=== PATIENT | male | born 1965 | race African-American/Black ===

== ENCOUNTER 2017-01-29 11:14 | Inpatient (IN) ==
[2017-01-29] MEDS ORDERED: SODIUM CHLORIDE 0.9% 1,000 ML IV STA (12:44)
[2017-01-29] MEDS ORDERED: ONDANSETRON 4 MG/2 ML VIAL IV ONE (12:45)
[2017-01-29] MEDS ORDERED: ONDANSETRON 4 MG/2 ML VIAL ONE ×2 (12:46→18:28)
[2017-01-29 12:51] LABS: Basophils % 0.4 % (0.0-0.8); Eosinophils # 0.1 10*3/uL (0.0-0.87); Eosinophils % 1.5 % (0.00-10.9); Hematocrit 47.4 VOL% (42.0-52.0); Hemoglobin 15.1 GM/DL (14.0-18.0); Immature Granulocytes % 0.3 %; Immature Granulocytes Absolute 0.02 #; Lymphocytes # 0.5 10*3/uL (1.4-4.0); Lymphocytes % 7.3 % (21.2-54.2); Mean Corpuscular HGB Conc 31.9 GM/DL (32-36); Mean Corpuscular Hemoglobin 29 PG (27-34); Mean Corpuscular Volume 89.8 FL (87-102); Mean Platelet Volume 11.9 FL (9.6-12.0); Monocytes # 0.7 10*3/uL (0.11-0.8); Monocytes % 9.5 % (1.7-12.7); Neutrophils # 5.6 10*3/uL (1.4-7.4); Platelet Count 165 T/CUMM (130-400); Red Blood Count 5.28 MC/CUMM (3.8-5.5); Red Cell Distribution Width 12.5 % (9.3-17.3); White Blood Count 6.9 T/CUMM (4-12)
[2017-01-29 12:56] LABS: Apearance,Urine CLEAR (Clear); Bacteria,Urine Occasional /HPF (Few); Blood, Urine Small mg/dL (Negative); Glucose,Urine (UA) Negative (Negative); Ketones,Urine 20 mg/dL (Negative); Mucus,Urine Occasional /LPF (Occasional); Nitrite,Urine Negative (Negative); Protein,Urine 30 MG/DL; RBC,Urine <1 /HPF (0-4); Urine Color Amber (Yellow); WBC,Urine 1 /HPF (0-6)
[2017-01-29 12:57] LABS: Bilirubin,Urine Moderate mg/dL (Negative)
[2017-01-29 13:23] LABS: Albumin 3.6 G/DL (3.4-5.0); Bilirubin,Total 8.3 MG/DL (0.2-1.0); Potassium 3.9 MMOL/L (3.5-5.1); Total Protein 8.6 G/DL (6.4-8.3)
[2017-01-29] MEDS ORDERED: HYDROmorphone 2 MG/1 ML VIAL ONE (18:27)
[2017-01-29] MEDS: HYDROmorphone 2 MG/1 ML VIAL IV PRN ×2 (18:35→22:22)
[2017-01-29] MEDS: ONDANSETRON 4 MG/2 ML VIAL IV PRN ×2 (18:35→22:26)
[2017-01-29] MEDS: SODIUM CHLORIDE 0.9% 1,000 ML IV SCH (21:51)
[2017-01-30] MEDS: HYDROmorphone 2 MG/1 ML VIAL IV PRN ×3 (04:00→22:47)
[2017-01-30 06:29] LABS: Basophils % 0.4 % (0.0-0.8); Eosinophils # 0.2 10*3/uL (0.0-0.87); Eosinophils % 3.1 % (0.00-10.9); Hematocrit 45.4 VOL% (42.0-52.0); Hemoglobin 14.6 GM/DL (14.0-18.0); Immature Granulocytes % 0.2 %; Immature Granulocytes Absolute 0.01 #; Lymphocytes # 0.9 10*3/uL (1.4-4.0); Lymphocytes % 16.7 % (21.2-54.2); Mean Corpuscular HGB Conc 32.2 GM/DL (32-36); Mean Corpuscular Hemoglobin 29 PG (27-34); Mean Corpuscular Volume 88.8 FL (87-102); Mean Platelet Volume 11.8 FL (9.6-12.0); Monocytes # 0.9 10*3/uL (0.11-0.8); Monocytes % 18.5 % (1.7-12.7); Neutrophils # 3.1 10*3/uL (1.4-7.4); Neutrophils % 61.1 % (38.7-73.9); Platelet Count 153 T/CUMM (130-400); Red Blood Count 5.11 MC/CUMM (3.8-5.5); Red Cell Distribution Width 12.8 % (9.3-17.3); White Blood Count 5.1 T/CUMM (4-12)
[2017-01-30] MEDS: SODIUM CHLORIDE 0.9% 1,000 ML IV SCH ×2 (06:33→20:47)
[2017-01-30 06:54] LABS: Eosinophils 2 % (0-10); Giant Platelets Few; Hypochromasia 1+; Lymphocytes 23 % (20-55); Ovalocytes Slight; Platelet Estimate Normal; Segmented Neutrophils 53 % (50-85); Total Cells Counted 100
[2017-01-30 07:04] LABS: Albumin 3.1 G/DL (3.4-5.0); Bilirubin,Total 10.4 MG/DL (0.2-1.0); Calcium 8.6 MG/DL (8.5-10.1); Osmolality,Calculated 278.5 MOS/KG (273-304); Potassium 4.5 MMOL/L (3.5-5.1); Total Protein 7.1 G/DL (6.4-8.3)
[2017-01-30] MEDS ORDERED: DEXTROSE 50% 25 GM/50 ML VIAL IV PRN (08:24)
[2017-01-30] MEDS ORDERED: GLUCAGON 1 MG VIAL IM PRN (08:24)
[2017-01-30] MEDS: PANTOPRAZOLE 40 MG TABLET PO SCH (10:01)
[2017-01-30 10:06] LABS: INR 1.1; PT Patient Result 11.3 SECS
[2017-01-30] MEDS ORDERED: fentaNYL 100 MCG/2 ML VIAL ONE (11:12)
[2017-01-30] MEDS ORDERED: MIDAZOLAM 2 MG/2 ML VIAL ONE (11:12)
[2017-01-30] MEDS ORDERED: INDOMETHACIN SUPP 50 MG SUPP RECTAL ONE (11:31)
[2017-01-30] MEDS ORDERED: GENTAMICIN INJ 80 MG in PREMIX 1 EACH IV ONE ×2 (12:09→16:30)
[2017-01-30] MEDS ORDERED: KETAMINE 500 MG/10 ML VIAL ONE (13:13)
[2017-01-30] MEDS: LEVOFLOXACIN INJ 500 MG in PREMIX 1 EACH IV SCH (13:30)
[2017-01-30] MEDS: ACETAMINOPHEN 325 MG TABLET PO PRN (13:50)
[2017-01-30] MEDS ORDERED: LIDOCAINE 2% 5 ML VIAL ONE (15:12)
[2017-01-30] MEDS ORDERED: PROPOFOL 200 MG/20 ML VIAL IV ONE (15:12)
[2017-01-30] MEDS ORDERED: SODIUM CHLORIDE 0.9% 2,800 ML IV ONE (16:12)
[2017-01-30] MEDS: ONDANSETRON 4 MG/2 ML VIAL IV PRN (22:51)
[2017-01-31 03:32] LABS: Basophils # 0.1 10*3/uL (0.0-0.2); Basophils % 0.2 % (0.0-0.8); Hematocrit 40.4 VOL% (42.0-52.0); Hemoglobin 12.7 GM/DL (14.0-18.0); Immature Granulocytes % 1.6 %; Immature Granulocytes Absolute 0.44 #; Lymphocytes # 0.4 10*3/uL (1.4-4.0); Lymphocytes % 1.6 % (21.2-54.2); Mean Corpuscular HGB Conc 31.4 GM/DL (32-36); Mean Corpuscular Hemoglobin 29 PG (27-34); Mean Corpuscular Volume 90.6 FL (87-102); Mean Platelet Volume 12.7 FL (9.6-12.0); Monocytes # 2.7 10*3/uL (0.11-0.8); Monocytes % 9.9 % (1.7-12.7); Neutrophils # 23.9 10*3/uL (1.4-7.4); Neutrophils % 86.7 % (38.7-73.9); Platelet Count 109 T/CUMM (130-400); Red Blood Count 4.46 MC/CUMM (3.8-5.5); Red Cell Distribution Width 12.5 % (9.3-17.3); White Blood Count 27.5 T/CUMM (4-12)
[2017-01-31 04:03] LABS: Albumin 2.3 G/DL (3.4-5.0); Bilirubin,Total 9.3 MG/DL (0.2-1.0); Calcium 7.5 MG/DL (8.5-10.1); Osmolality,Calculated 278.5 MOS/KG (273-304); Potassium 4.3 MMOL/L (3.5-5.1); Total Protein 5.7 G/DL (6.4-8.3)
[2017-01-31 04:05] LABS: Albumin 2.3 G/DL (3.4-5.0); Bilirubin,Direct 7.49 MG/DL (0.0-0.20); Bilirubin,Total 9.5 MG/DL (0.2-1.0); Total Protein 5.7 G/DL (6.4-8.3)
[2017-01-31 04:21] LABS: Band Neutrophils 10 % (0-10); Giant Platelets Few; Hypochromasia 1+; Lymphocytes 2 % (20-55); Ovalocytes Slight; Platelet Estimate Decreased; Segmented Neutrophils 83 % (50-85); Total Cells Counted 100
[2017-01-31] MEDS: SODIUM CHLORIDE 0.9% 1,000 ML IV SCH ×3 (04:37→21:59)
[2017-01-31] MEDS: PANTOPRAZOLE 40 MG TABLET PO SCH (08:57)
[2017-01-31] MEDS: ACETAMINOPHEN 325 MG TABLET PO PRN (08:57)
[2017-01-31] MEDS ORDERED: BUPIVACAINE 0.25% 50 ML VIAL ONE (12:35)
[2017-01-31] MEDS ORDERED: TISSUE ADHESIVE 1 EACH APPLICATOR TOP ONE (12:35)
[2017-01-31] MEDS ORDERED: LEVOFLOXACIN INJ 100 ML IV ONE (12:50)
[2017-01-31] MEDS: LEVOFLOXACIN INJ 500 MG in PREMIX 1 EACH IV SCH (13:03)
[2017-01-31] MEDS ORDERED: SEVOFLURANE 1 UNIT/15 MINUTE INH ONE (14:35)
[2017-01-31] MEDS ORDERED: PROPOFOL 200 MG/20 ML VIAL IV ONE (14:35)
[2017-01-31] MEDS ORDERED: KETOROLAC 30 MG/1 ML VIAL ONE (14:36)
[2017-01-31] MEDS ORDERED: MIDAZOLAM 2 MG/2 ML VIAL ONE (14:36)
[2017-01-31] MEDS ORDERED: fentaNYL 100 MCG/2 ML VIAL ONE (14:36)
[2017-01-31] MEDS ORDERED: ONDANSETRON 4 MG/2 ML VIAL ONE (14:36)
[2017-01-31] MEDS ORDERED: DEXAMETHASONE 10 MG/1 ML VIAL ONE (14:36)
[2017-01-31] MEDS ORDERED: ACETAMINOPHEN 1,000 MG/100 ML VIAL IV ONE (14:37)
[2017-01-31] MEDS ORDERED: GLYCOPYRROLATE 0.4 MG/2 ML VIAL ONE (14:37)
[2017-01-31] MEDS ORDERED: ROCURONIUM 100 MG/10 ML VIAL IV ONE (14:37)
[2017-01-31] MEDS ORDERED: NEOSTIGMINE 10 MG/10 ML VIAL ONE (14:37)
[2017-01-31] MEDS ORDERED: LACTATED RINGERS 1,000 ML IV ONE (14:37)
[2017-01-31] MEDS ORDERED: ONDANSETRON 4 MG/2 ML VIAL IV PRN (14:42)
[2017-01-31] MEDS: HYDROmorphone 2 MG/1 ML VIAL IV PRN ×5 (14:48→19:05)
[2017-02-01] MEDS: HYDROmorphone 2 MG/1 ML VIAL IV PRN ×2 (02:14→11:55)
[2017-02-01 03:35] LABS: Basophils % 0.1 % (0.0-0.8); Hematocrit 41.4 VOL% (42.0-52.0); Immature Granulocytes % 3.2 %; Immature Granulocytes Absolute 0.73 #; Lymphocytes # 0.9 10*3/uL (1.4-4.0); Lymphocytes % 3.8 % (21.2-54.2); Mean Corpuscular HGB Conc 31.4 GM/DL (32-36); Mean Corpuscular Hemoglobin 28 PG (27-34); Mean Corpuscular Volume 90.6 FL (87-102); Mean Platelet Volume 13.5 FL (9.6-12.0); Monocytes # 1.3 10*3/uL (0.11-0.8); Monocytes % 5.8 % (1.7-12.7); Neutrophils # 19.8 10*3/uL (1.4-7.4); Neutrophils % 87.1 % (38.7-73.9); Platelet Count 107 T/CUMM (130-400); Red Blood Count 4.57 MC/CUMM (3.8-5.5); Red Cell Distribution Width 13.2 % (9.3-17.3); White Blood Count 22.8 T/CUMM (4-12)
[2017-02-01 04:03] LABS: Albumin 2.3 G/DL (3.4-5.0); Bilirubin,Total 8.6 MG/DL (0.2-1.0); Calcium 8.3 MG/DL (8.5-10.1); Osmolality,Calculated 279.5 MOS/KG (273-304); Potassium 4.9 MMOL/L (3.5-5.1); Total Protein 6.3 G/DL (6.4-8.3)
[2017-02-01 05:36] LABS: Band Neutrophils 9 % (0-10); Lymphocytes 6 % (20-55); Myelocytes 2 %; Segmented Neutrophils 81 % (50-85)
[2017-02-01 05:37] LABS: Platelet Estimate Adequate; Total Cells Counted 100
[2017-02-01] MEDS: PANTOPRAZOLE 40 MG TABLET PO SCH (10:21)
[2017-02-01] MEDS: LEVOFLOXACIN INJ 500 MG in PREMIX 1 EACH IV SCH (13:12)
[2017-02-02 04:17] LABS: Basophils % 0.2 % (0.0-0.8); Eosinophils # 0.2 10*3/uL (0.0-0.87); Eosinophils % 0.9 % (0.00-10.9); Hematocrit 39.4 VOL% (42.0-52.0); Hemoglobin 13.1 GM/DL (14.0-18.0); Immature Granulocytes % 1.3 %; Immature Granulocytes Absolute 0.24 #; Lymphocytes # 1.6 10*3/uL (1.4-4.0); Lymphocytes % 8.7 % (21.2-54.2); Mean Corpuscular HGB Conc 33.2 GM/DL (32-36); Mean Corpuscular Hemoglobin 29 PG (27-34); Mean Corpuscular Volume 86.8 FL (87-102); Mean Platelet Volume 13.2 FL (9.6-12.0); Monocytes % 10.7 % (1.7-12.7); Neutrophils # 14.2 10*3/uL (1.4-7.4); Neutrophils % 78.2 % (38.7-73.9); Platelet Count 143 T/CUMM (130-400); Red Blood Count 4.54 MC/CUMM (3.8-5.5); Red Cell Distribution Width 13.4 % (9.3-17.3); White Blood Count 18.1 T/CUMM (4-12)
[2017-02-02 04:57] LABS: Albumin 2.3 G/DL (3.4-5.0); Bilirubin,Direct 10.49 MG/DL (0.0-0.20); Calcium 8.3 MG/DL (8.5-10.1); Magnesium 2.1 MG/DL (1.8-2.4); Osmolality,Calculated 276.7 MOS/KG (273-304); Potassium 3.9 MMOL/L (3.5-5.1); Total Protein 6.1 G/DL (6.4-8.3)
[2017-02-02 05:09] LABS: Bilirubin,Indirect 3.2 MG/DL (0.0-1.0); Bilirubin,Total 13.7 MG/DL (0.2-1.0)
[2017-02-02] MEDS: PANTOPRAZOLE 40 MG TABLET PO SCH (08:37)
[2017-02-02] MEDS: SODIUM CHLORIDE 0.9% 1,000 ML IV SCH (13:13)
[2017-02-02] MEDS: LEVOFLOXACIN INJ 500 MG in PREMIX 1 EACH IV SCH (14:14)
[2017-02-02] MEDS: oxyCODONE/ACETAMINOPHEN 5-325 MG TABLET PO PRN (14:28)
[2017-02-02] MEDS: metroNIDAZOLE INJ 500 MG in PREMIX 1 EACH IV SCH ×2 (15:15→21:13)
[2017-02-02] MEDS: ONDANSETRON 4 MG/2 ML VIAL IV PRN (22:35)
[2017-02-03 03:28] LABS: Basophils # 0.1 10*3/uL (0.0-0.2); Eosinophils # 0.3 10*3/uL (0.0-0.87); Eosinophils % 2.4 % (0.00-10.9); Hematocrit 42.1 VOL% (42.0-52.0); Hemoglobin 14.5 GM/DL (14.0-18.0); Immature Granulocytes % 4.3 %; Lymphocytes # 1.1 10*3/uL (1.4-4.0); Lymphocytes % 9.3 % (21.2-54.2); Mean Corpuscular HGB Conc 34.4 GM/DL (32-36); Mean Corpuscular Hemoglobin 29 PG (27-34); Mean Corpuscular Volume 85.1 FL (87-102); Mean Platelet Volume 12.8 FL (9.6-12.0); Monocytes # 1.5 10*3/uL (0.11-0.8); Monocytes % 12.8 % (1.7-12.7); Neutrophils # 8.1 10*3/uL (1.4-7.4); Neutrophils % 70.2 % (38.7-73.9); Platelet Count 165 T/CUMM (130-400); Red Blood Count 4.95 MC/CUMM (3.8-5.5); Red Cell Distribution Width 13.6 % (9.3-17.3); White Blood Count 11.5 T/CUMM (4-12)
[2017-02-03 04:00] LABS: Albumin 2.5 G/DL (3.4-5.0); Calcium 8.8 MG/DL (8.5-10.1); Osmolality,Calculated 271.1 MOS/KG (273-304); Potassium 4.1 MMOL/L (3.5-5.1); Total Protein 6.5 G/DL (6.4-8.3)
[2017-02-03 04:22] LABS: Bilirubin,Total 22.2 MG/DL (0.2-1.0)
[2017-02-03] MEDS: HYDROmorphone 2 MG/1 ML VIAL IV PRN ×2 (05:15→14:16)
[2017-02-03] MEDS: oxyCODONE/ACETAMINOPHEN 5-325 MG TABLET PO PRN ×2 (05:51→22:27)
[2017-02-03] MEDS: metroNIDAZOLE INJ 500 MG in PREMIX 1 EACH IV SCH (07:30)
[2017-02-03] MEDS: MEROPENEM 1,000 MG in SYRINGE 1 EACH IV SCH ×2 (09:46→22:32)
[2017-02-03] MEDS: PANTOPRAZOLE 40 MG TABLET PO SCH (09:47)
[2017-02-04 06:46] LABS: Basophils # 0.1 10*3/uL (0.0-0.2); Basophils % 0.4 % (0.0-0.8); Eosinophils # 0.4 10*3/uL (0.0-0.87); Eosinophils % 3.4 % (0.00-10.9); Hematocrit 44.3 VOL% (42.0-52.0); Hemoglobin 15.1 GM/DL (14.0-18.0); Immature Granulocytes % 9.2 %; Lymphocytes # 1.5 10*3/uL (1.4-4.0); Lymphocytes % 11.7 % (21.2-54.2); Mean Corpuscular HGB Conc 34.1 GM/DL (32-36); Mean Corpuscular Hemoglobin 29 PG (27-34); Mean Corpuscular Volume 84.9 FL (87-102); Monocytes # 1.6 10*3/uL (0.11-0.8); Monocytes % 11.9 % (1.7-12.7); NRBC # 0.02 10*3/uL; Neutrophils # 8.3 10*3/uL (1.4-7.4); Neutrophils % 63.4 % (38.7-73.9); Platelet Count 170 T/CUMM (130-400); Red Blood Count 5.22 MC/CUMM (3.8-5.5); Red Cell Distribution Width 13.8 % (9.3-17.3); White Blood Count 13.1 T/CUMM (4-12)
[2017-02-04 07:13] LABS: Band Neutrophils 1 % (0-10); Eosinophils 5 % (0-10); Hypochromasia Slight; Lymphocytes 9 % (20-55); Myelocytes 2 %; Nucleated Red Blood Cells 1 (0-5); Platelet Estimate Adequate; Segmented Neutrophils 67 % (50-85); Total Cells Counted 100
[2017-02-04 07:17] LABS: Albumin 2.6 G/DL (3.4-5.0); Bilirubin,Total 9.9 MG/DL (0.2-1.0); Calcium 8.9 MG/DL (8.5-10.1); Osmolality,Calculated 274.1 MOS/KG (273-304); Potassium 4.8 MMOL/L (3.5-5.1); Total Protein 7.2 G/DL (6.4-8.3)
[2017-02-04] MEDS ORDERED: MIDAZOLAM 2 MG/2 ML VIAL ONE (08:42)
[2017-02-04] MEDS ORDERED: fentaNYL 100 MCG/2 ML VIAL ONE (08:43)
[2017-02-04] MEDS: MEROPENEM 1,000 MG in SYRINGE 1 EACH IV SCH ×2 (11:53→21:39)
[2017-02-04 12:03] LABS: PT Patient Result 10.7 SECS; Partial Thromboplastin Time 25.9 SECS (0-40)
[2017-02-04] MEDS: PANTOPRAZOLE 40 MG TABLET PO SCH (15:24)
[2017-02-05] MEDS ORDERED: ONDANSETRON 4 MG/2 ML VIAL ONE (09:33)
[2017-02-05] MEDS ORDERED: LIDOCAINE 2% 5 ML VIAL ONE (09:33)
[2017-02-05] MEDS ORDERED: PROPOFOL 200 MG/20 ML VIAL IV ONE (09:33)
[2017-02-05 09:39] LABS: Basophils # 0.1 10*3/uL (0.0-0.2); Basophils % 0.7 % (0.0-0.8); Eosinophils # 0.5 10*3/uL (0.0-0.87); Eosinophils % 5.4 % (0.00-10.9); Hematocrit 45.3 VOL% (42.0-52.0); Hemoglobin 14.3 GM/DL (14.0-18.0); Immature Granulocytes % 10.8 %; Immature Granulocytes Absolute 1.03 #; Lymphocytes # 1.5 10*3/uL (1.4-4.0); Mean Corpuscular HGB Conc 31.6 GM/DL (32-36); Mean Corpuscular Hemoglobin 28 PG (27-34); Mean Corpuscular Volume 89.9 FL (87-102); Mean Platelet Volume 11.9 FL (9.6-12.0); Monocytes # 1.3 10*3/uL (0.11-0.8); Neutrophils # 5.1 10*3/uL (1.4-7.4); Neutrophils % 53.1 % (38.7-73.9); Platelet Count 195 T/CUMM (130-400); Red Blood Count 5.04 MC/CUMM (3.8-5.5); Red Cell Distribution Width 14.2 % (9.3-17.3); White Blood Count 9.6 T/CUMM (4-12)
[2017-02-05 10:12] LABS: Band Neutrophils 3 % (0-10); Eosinophils 6 % (0-10); Lymphocytes 15 % (20-55); Myelocytes 1 %; Segmented Neutrophils 65 % (50-85); Total Cells Counted 100
[2017-02-05 10:13] LABS: Hypochromasia 1+
[2017-02-05 10:15] LABS: Platelet Estimate Adequate
[2017-02-05 10:17] LABS: Albumin 2.6 G/DL (3.4-5.0); Bilirubin,Total 6.8 MG/DL (0.2-1.0); Calcium 8.5 MG/DL (8.5-10.1); Osmolality,Calculated 277.8 MOS/KG (273-304); Potassium 4.3 MMOL/L (3.5-5.1); Total Protein 7.3 G/DL (6.4-8.3)
[2017-02-05] MEDS: PANTOPRAZOLE 40 MG TABLET PO SCH (10:54)
[2017-02-05] MEDS: MEROPENEM 1,000 MG in SYRINGE 1 EACH IV SCH ×2 (10:54→21:15)
[2017-02-05 21:58] LABS: Hepatitis C Virus Ab Quant 0.17 Index; Hepatitis C Virus Ab Result Negative (Negative)
[2017-02-06 04:54] LABS: Basophils % 0.5 % (0.0-0.8); Eosinophils # 0.5 10*3/uL (0.0-0.87); Eosinophils % 6.3 % (0.00-10.9); Hemoglobin 13.9 GM/DL (14.0-18.0); Immature Granulocytes % 11.7 %; Immature Granulocytes Absolute 0.87 #; Lymphocytes # 1.4 10*3/uL (1.4-4.0); Lymphocytes % 18.4 % (21.2-54.2); Mean Corpuscular HGB Conc 33.1 GM/DL (32-36); Mean Corpuscular Hemoglobin 29 PG (27-34); Mean Corpuscular Volume 87.3 FL (87-102); Mean Platelet Volume 12.1 FL (9.6-12.0); Neutrophils # 3.7 10*3/uL (1.4-7.4); Neutrophils % 49.1 % (38.7-73.9); Platelet Count 196 T/CUMM (130-400); Red Blood Count 4.81 MC/CUMM (3.8-5.5); White Blood Count 7.4 T/CUMM (4-12)
[2017-02-06 05:32] LABS: Albumin 2.6 G/DL (3.4-5.0); Bilirubin,Total 5.5 MG/DL (0.2-1.0); Calcium 8.6 MG/DL (8.5-10.1); Magnesium 2.4 MG/DL (1.8-2.4); Osmolality,Calculated 278.8 MOS/KG (273-304); Potassium 4.3 MMOL/L (3.5-5.1); Total Protein 6.8 G/DL (6.4-8.3)
[2017-02-06 05:34] LABS: Band Neutrophils 6 % (0-10); Eosinophils 8 % (0-10); Giant Platelets Few; Hypochromasia 1+; Lymphocytes 14 % (20-55); Platelet Estimate Adequate; Segmented Neutrophils 56 % (50-85); Total Cells Counted 100
[2017-02-06 07:40] VITALS: BP 99/66
[2017-02-06] MEDS: PANTOPRAZOLE 40 MG TABLET PO SCH (08:26)
[2017-02-06] MEDS: MEROPENEM 1,000 MG in SYRINGE 1 EACH IV SCH (10:08)
[2017-02-06] MEDS ORDERED: LEVOFLOXACIN 750 MG TABLET PO SCH (10:30)
[2017-02-06] MEDS ORDERED: metroNIDAZOLE 500 MG TABLET PO SCH (21:00)
== END 2017-02-06 11:28 | disposition home or self-care (01) | DRG 417 ==
LOC: N.ED 11:14 → N.EDINP 15:12 → SUATTDRO 15:12 → N.3E 19:15
PROVIDERS: ADMIT Internal Medicine; ATTEND Internal Medicine Infectious Disease
PROC: ERCPWSP (ICD-10-PCS; 2017-01-30 12:05)
PROC: LAPCHOL (2017-01-31 12:50)
PROC: ERCPWST (ICD-10-PCS; 2017-02-04 09:05)

== ENCOUNTER 2017-04-08 18:11 | Inpatient (IN) ==
[2017-04-08] MEDS ORDERED: SODIUM CHLORIDE 0.9% 1,000 ML IV STA (18:54)
[2017-04-08] MEDS ORDERED: HYDROmorphone 2 MG/1 ML VIAL IV STA (18:54)
[2017-04-08] MEDS ORDERED: PANTOPRAZOLE 40 MG VIAL IV STA (18:54)
[2017-04-08] MEDS ORDERED: ONDANSETRON 4 MG/2 ML VIAL IV STA (18:54)
[2017-04-08 19:05] LABS: Basophils % 0.4 % (0.0-0.8); Eosinophils # 0.1 10*3/uL (0.0-0.87); Eosinophils % 1.5 % (0.00-10.9); Hematocrit 45.2 VOL% (42.0-52.0); Hemoglobin 14.5 GM/DL (14.0-18.0); Immature Granulocytes % 0.3 %; Immature Granulocytes Absolute 0.02 #; Lymphocytes # 0.9 10*3/uL (1.4-4.0); Lymphocytes % 12.7 % (21.2-54.2); Mean Corpuscular HGB Conc 32.1 GM/DL (32-36); Mean Corpuscular Hemoglobin 29 PG (27-34); Mean Corpuscular Volume 90.2 FL (87-102); Mean Platelet Volume 11.7 FL (9.6-12.0); Monocytes % 13.6 % (1.7-12.7); Neutrophils # 5.2 10*3/uL (1.4-7.4); Neutrophils % 71.5 % (38.7-73.9); Platelet Count 123 T/CUMM (130-400); Red Blood Count 5.01 MC/CUMM (3.8-5.5); Red Cell Distribution Width 12.6 % (9.3-17.3); White Blood Count 7.3 T/CUMM (4-12)
[2017-04-08] MEDS ORDERED: PANTOPRAZOLE 40 MG VIAL IV ONE (19:13)
[2017-04-08] MEDS ORDERED: ONDANSETRON 4 MG/2 ML VIAL ONE (19:13)
[2017-04-08] MEDS ORDERED: HYDROmorphone 2 MG/1 ML VIAL ONE (19:14)
[2017-04-08 19:32] LABS: Alanine Aminotransferase 42 U/L (16-61); Albumin 3.4 G/DL (3.4-5.0); Alkaline Phosphatase 101 U/L (45-117); Amylase 115 U/L (25-115); Aspartate Amino Transferase 29 U/L (0-37); Blood Urea Nitrogen 22 MG/DL (7-18); Calcium 8.8 MG/DL (8.5-10.1); Glucose 103 MG/DL (74-106); Potassium 3.9 MMOL/L (3.5-5.1); Sodium 136 MMOL/L (136-145); Total Protein 8.2 G/DL (6.4-8.3); Troponin I Only < 0.015 NG/ML (0.00-0.045)
[2017-04-08 19:58] LABS: Ammonia 18 UMOL/L (11-32)
[2017-04-08 20:01] LABS: Lactic Acid 1.4 MMOL/L (0.4-2.0)
[2017-04-08] MEDS ORDERED: PIPERACILLIN/TAZOBACTAM 3,375 MG in SODIUM CHLORIDE 0.9% 100 ML IV STA (20:37)
[2017-04-08] MEDS ORDERED: PIPERACILLIN/TAZOBACTAM 3,375 MG VIAL IV ONE (20:51)
[2017-04-08 22:55] LABS: Apearance,Urine CLEAR (Clear); Bilirubin,Urine Negative (Negative); Blood, Urine Small mg/dL (Negative); Glucose,Urine (UA) Negative (Negative); Ketones,Urine Negative (Negative); Mucus,Urine Occasional /LPF (Occasional); Nitrite,Urine Negative (Negative); Protein,Urine Negative; RBC,Urine 8 /HPF (0-4); Squamous Epithelial Cell,Urine Occasional /HPF (0-10); Urine Color Yellow (Yellow); Urine Specific Gravity 1.046 (1.001-1.035); WBC,Urine <1 /HPF (0-6)
[2017-04-08] MEDS ORDERED: ENOXAPARIN 40 MG/0.4 ML SYRINGE SUBCUT SCH (23:00)
[2017-04-08] MEDS: ONDANSETRON 4 MG/2 ML VIAL IV PRN (23:35)
[2017-04-08] MEDS: HYDROmorphone 2 MG/1 ML VIAL IV PRN (23:38)
[2017-04-08] MEDS: SODIUM CHLORIDE 0.9% 1,000 ML IV SCH (23:39)
[2017-04-09] MEDS: PIPERACILLIN/TAZOBACTAM 3,375 MG in SODIUM CHLORIDE 0.9% 100 ML IV SCH ×3 (03:48→20:43)
[2017-04-09] MEDS: ACETAMINOPHEN 325 MG TABLET PO PRN ×2 (04:58→20:48)
[2017-04-09] MEDS: HYDROmorphone 2 MG/1 ML VIAL IV PRN ×3 (05:01→20:37)
[2017-04-09 06:56] LABS: Basophils % 0.2 % (0.0-0.8); Eosinophils # 0.1 10*3/uL (0.0-0.87); Eosinophils % 1.7 % (0.00-10.9); Hematocrit 39.4 VOL% (42.0-52.0); Hemoglobin 12.7 GM/DL (14.0-18.0); Immature Granulocytes % 0.3 %; Immature Granulocytes Absolute 0.02 #; Lymphocytes # 0.9 10*3/uL (1.4-4.0); Lymphocytes % 13.9 % (21.2-54.2); Mean Corpuscular HGB Conc 32.2 GM/DL (32-36); Mean Corpuscular Hemoglobin 29 PG (27-34); Monocytes # 1.4 10*3/uL (0.11-0.8); Monocytes % 22.1 % (1.7-12.7); Neutrophils % 61.8 % (38.7-73.9); Platelet Count 119 T/CUMM (130-400); Red Blood Count 4.38 MC/CUMM (3.8-5.5); Red Cell Distribution Width 12.6 % (9.3-17.3); White Blood Count 6.4 T/CUMM (4-12)
[2017-04-09 07:24] LABS: Eosinophils 1 % (0-10); Giant Platelets Few; Hypochromasia 1+; Lymphocytes 15 % (20-55); Ovalocytes Slight; Platelet Estimate Decreased; Segmented Neutrophils 63 % (50-85); Total Cells Counted 100
[2017-04-09 07:35] LABS: Albumin 2.7 G/DL (3.4-5.0); Bilirubin,Total 2.6 MG/DL (0.2-1.0); Calcium 8.1 MG/DL (8.5-10.1); Osmolality,Calculated 278.5 MOS/KG (273-304); Potassium 4.2 MMOL/L (3.5-5.1); Total Protein 6.6 G/DL (6.4-8.3)
[2017-04-09] MEDS: PANTOPRAZOLE 40 MG VIAL IV SCH ×2 (09:22→20:41)
[2017-04-09] MEDS: SODIUM CHLORIDE 0.9% 1,000 ML IV SCH ×2 (11:15→20:36)
[2017-04-09] MEDS ORDERED: HEPARIN 5,000 UNIT/1 ML VIAL IV ONE (15:08)
[2017-04-09] MEDS: HEPARIN DRIP 25,000 UNITS/500 ML PREMIX IV SCH (16:43)
[2017-04-10] MEDS: SODIUM CHLORIDE 0.9% 1,000 ML IV SCH ×4 (03:00→19:18)
[2017-04-10] MEDS: PIPERACILLIN/TAZOBACTAM 3,375 MG in SODIUM CHLORIDE 0.9% 100 ML IV SCH ×3 (03:14→20:59)
[2017-04-10 05:27] LABS: Basophils % 0.6 % (0.0-0.8); Eosinophils # 0.1 10*3/uL (0.0-0.87); Eosinophils % 1.6 % (0.00-10.9); Hematocrit 39.7 VOL% (42.0-52.0); Hemoglobin 12.7 GM/DL (14.0-18.0); Immature Granulocytes % 0.4 %; Immature Granulocytes Absolute 0.03 #; Lymphocytes # 1.1 10*3/uL (1.4-4.0); Mean Corpuscular Hemoglobin 29 PG (27-34); Mean Corpuscular Volume 90.6 FL (87-102); Mean Platelet Volume 11.6 FL (9.6-12.0); Monocytes # 1.6 10*3/uL (0.11-0.8); Monocytes % 23.6 % (1.7-12.7); Neutrophils % 57.8 % (38.7-73.9); Platelet Count 138 T/CUMM (130-400); Red Blood Count 4.38 MC/CUMM (3.8-5.5); Red Cell Distribution Width 12.5 % (9.3-17.3); White Blood Count 6.9 T/CUMM (4-12)
[2017-04-10 05:49] LABS: Eosinophils 2 % (0-10); Hypochromasia 1+; Lymphocytes 16 % (20-55); Segmented Neutrophils 62 % (50-85); Total Cells Counted 100
[2017-04-10 05:50] LABS: Giant Platelets Few; Microcytosis Slight; Platelet Estimate Adequate
[2017-04-10 05:59] LABS: Albumin 2.4 G/DL (3.4-5.0); Bilirubin,Total 2.4 MG/DL (0.2-1.0); Calcium 8.2 MG/DL (8.5-10.1); Osmolality,Calculated 278.5 MOS/KG (273-304); Potassium 3.9 MMOL/L (3.5-5.1); Total Protein 6.5 G/DL (6.4-8.3)
[2017-04-10] MEDS: HEPARIN DRIP 25,000 UNITS/500 ML PREMIX IV SCH ×3 (08:27→22:37)
[2017-04-10] MEDS ORDERED: LEVOFLOXACIN INJ 500 MG in PREMIX 1 EACH IV ONE (08:45)
[2017-04-10] MEDS ORDERED: MIDAZOLAM 2 MG/2 ML VIAL IV ONE (08:45)
[2017-04-10] MEDS ORDERED: fentaNYL 100 MCG/2 ML VIAL IV ONE (08:45)
[2017-04-10] MEDS: HYDROmorphone 2 MG/1 ML VIAL IV PRN ×3 (10:24→20:54)
[2017-04-10] MEDS: PANTOPRAZOLE 40 MG VIAL IV SCH ×2 (10:28→20:57)
[2017-04-11 02:02] LABS: Basophils % 0.5 % (0.0-0.8); Eosinophils # 0.1 10*3/uL (0.0-0.87); Eosinophils % 2.1 % (0.00-10.9); Hematocrit 37.6 VOL% (42.0-52.0); Hemoglobin 12.7 GM/DL (14.0-18.0); Immature Granulocytes % 0.2 %; Immature Granulocytes Absolute 0.01 #; Lymphocytes # 1.1 10*3/uL (1.4-4.0); Lymphocytes % 16.6 % (21.2-54.2); Mean Corpuscular HGB Conc 33.8 GM/DL (32-36); Mean Corpuscular Hemoglobin 29 PG (27-34); Mean Platelet Volume 11.3 FL (9.6-12.0); Monocytes # 1.5 10*3/uL (0.11-0.8); Monocytes % 21.9 % (1.7-12.7); Neutrophils # 3.9 10*3/uL (1.4-7.4); Neutrophils % 58.7 % (38.7-73.9); Platelet Count 149 T/CUMM (130-400); Red Blood Count 4.32 MC/CUMM (3.8-5.5); Red Cell Distribution Width 12.5 % (9.3-17.3); White Blood Count 6.6 T/CUMM (4-12)
[2017-04-11 02:26] LABS: Band Neutrophils 1 % (0-10); Lymphocytes 23 % (20-55); Segmented Neutrophils 65 % (50-85); Total Cells Counted 100
[2017-04-11 02:27] LABS: Platelet Estimate Normal
[2017-04-11 02:37] LABS: Albumin 2.3 G/DL (3.4-5.0); Bilirubin,Total 2.1 MG/DL (0.2-1.0); Calcium 7.7 MG/DL (8.5-10.1); Osmolality,Calculated 274.8 MOS/KG (273-304); Potassium 3.9 MMOL/L (3.5-5.1); Total Protein 6.3 G/DL (6.4-8.3)
[2017-04-11] MEDS: SODIUM CHLORIDE 0.9% 1,000 ML IV SCH ×4 (03:10→15:39)
[2017-04-11] MEDS: HYDROmorphone 2 MG/1 ML VIAL IV PRN ×6 (05:29→23:26)
[2017-04-11] MEDS: PIPERACILLIN/TAZOBACTAM 3,375 MG in SODIUM CHLORIDE 0.9% 100 ML IV SCH ×3 (05:33→21:08)
[2017-04-11] MEDS: PANTOPRAZOLE 40 MG VIAL IV SCH ×2 (08:38→21:09)
[2017-04-11] MEDS: HEPARIN DRIP 25,000 UNITS/500 ML PREMIX IV SCH ×2 (12:13→15:39)
[2017-04-11] MEDS: ACETAMINOPHEN 325 MG TABLET PO PRN (21:11)
[2017-04-12] MEDS: HEPARIN DRIP 25,000 UNITS/500 ML PREMIX IV SCH ×4 (01:02→23:56)
[2017-04-12] MEDS: PIPERACILLIN/TAZOBACTAM 3,375 MG in SODIUM CHLORIDE 0.9% 100 ML IV SCH ×3 (04:27→20:41)
[2017-04-12 07:12] LABS: Albumin 2.5 G/DL (3.4-5.0); Bilirubin,Total 1.8 MG/DL (0.2-1.0); Calcium 8.7 MG/DL (8.5-10.1); Osmolality,Calculated 275.7 MOS/KG (273-304); Potassium 3.7 MMOL/L (3.5-5.1); Total Protein 7.6 G/DL (6.4-8.3)
[2017-04-12] MEDS: PANTOPRAZOLE 40 MG VIAL IV SCH ×2 (08:27→20:36)
[2017-04-12] MEDS: HYDROmorphone 2 MG/1 ML VIAL IV PRN ×5 (08:27→20:39)
[2017-04-12] MEDS: ONDANSETRON 4 MG/2 ML VIAL IV PRN ×2 (08:27→14:52)
[2017-04-12] MEDS: SODIUM CHLORIDE 0.9% 1,000 ML IV SCH ×3 (12:29→23:16)
[2017-04-12] MEDS: ACETAMINOPHEN 325 MG TABLET PO PRN (20:37)
[2017-04-13] MEDS: PIPERACILLIN/TAZOBACTAM 3,375 MG in SODIUM CHLORIDE 0.9% 100 ML IV SCH ×3 (04:05→20:32)
[2017-04-13 05:19] LABS: Basophils % 0.8 % (0.0-0.8); Eosinophils # 0.2 10*3/uL (0.0-0.87); Eosinophils % 4.7 % (0.00-10.9); Hematocrit 36.9 VOL% (42.0-52.0); Hemoglobin 12.2 GM/DL (14.0-18.0); Immature Granulocytes % 0.4 %; Immature Granulocytes Absolute 0.02 #; Lymphocytes # 0.9 10*3/uL (1.4-4.0); Lymphocytes % 18.2 % (21.2-54.2); Mean Corpuscular HGB Conc 33.1 GM/DL (32-36); Mean Corpuscular Hemoglobin 29 PG (27-34); Mean Corpuscular Volume 87.9 FL (87-102); Mean Platelet Volume 11.1 FL (9.6-12.0); Monocytes # 1.2 10*3/uL (0.11-0.8); Monocytes % 24.3 % (1.7-12.7); Neutrophils # 2.6 10*3/uL (1.4-7.4); Neutrophils % 51.6 % (38.7-73.9); Platelet Count 197 T/CUMM (130-400); Red Cell Distribution Width 12.7 % (9.3-17.3); White Blood Count 5.1 T/CUMM (4-12)
[2017-04-13 06:26] LABS: Calcium 8.2 MG/DL (8.5-10.1); Osmolality,Calculated 278.4 MOS/KG (273-304); Potassium 3.7 MMOL/L (3.5-5.1)
[2017-04-13 06:34] LABS: Band Neutrophils 2 % (0-10); Eosinophils 5 % (0-10); Hypochromasia 1+; Lymphocytes 18 % (20-55); Metamyelocytes 1 %; Segmented Neutrophils 62 % (50-85); Total Cells Counted 100
[2017-04-13 06:35] LABS: Microcytosis 1+; Platelet Estimate Adequate
[2017-04-13] MEDS: HYDROmorphone 2 MG/1 ML VIAL IV PRN ×4 (07:42→20:30)
[2017-04-13] MEDS: ONDANSETRON 4 MG/2 ML VIAL IV PRN ×2 (07:42→14:35)
[2017-04-13] MEDS: PANTOPRAZOLE 40 MG VIAL IV SCH ×2 (09:45→20:29)
[2017-04-13] MEDS: HEPARIN DRIP 25,000 UNITS/500 ML PREMIX IV SCH ×3 (12:43→23:06)
[2017-04-13] MEDS: SODIUM CHLORIDE 0.9% 1,000 ML IV SCH (12:56)
[2017-04-13] MEDS ORDERED: HYDROmorphone 2 MG/1 ML VIAL IM ONE (15:43)
[2017-04-13] MEDS ORDERED: HYDROmorphone 2 MG/1 ML VIAL IV ONE (15:57)
[2017-04-14] MEDS: ACETAMINOPHEN 325 MG TABLET PO PRN ×2 (00:36→19:06)
[2017-04-14] MEDS: HYDROmorphone 2 MG/1 ML VIAL IV PRN ×6 (01:30→23:36)
[2017-04-14] MEDS: PIPERACILLIN/TAZOBACTAM 3,375 MG in SODIUM CHLORIDE 0.9% 100 ML IV SCH ×2 (03:36→18:43)
[2017-04-14] MEDS: PANTOPRAZOLE 40 MG VIAL IV SCH ×2 (09:22→20:41)
[2017-04-14] MEDS: SODIUM CHLORIDE 0.9% 1,000 ML IV SCH ×5 (10:20→18:33)
[2017-04-14] MEDS ORDERED: HEPARIN/NACL 0.9% 2 UNITS/ML 2,000 ML IV ONE (12:35)
[2017-04-14] MEDS ORDERED: LEVOFLOXACIN INJ 500 MG in PREMIX 1 EACH IV ONE (13:17)
[2017-04-14] MEDS ORDERED: MIDAZOLAM 10 MG/2 ML VIAL IV ONE (13:18)
[2017-04-14] MEDS ORDERED: fentaNYL 100 MCG/2 ML VIAL IV ONE (13:18)
[2017-04-14] MEDS ORDERED: fentaNYL 100 MCG/2 ML VIAL ONE (13:39)
[2017-04-14] MEDS ORDERED: MIDAZOLAM 2 MG/2 ML VIAL ONE ×3 (13:39→15:54)
[2017-04-14] MEDS ORDERED: ALTEPLASE 2 MG VIAL ONE (13:40)
[2017-04-14] MEDS ORDERED: HEPARIN DRIP 25,000 UNITS/500 ML PREMIX IV SCH (14:00)
[2017-04-14] MEDS ORDERED: ONDANSETRON 4 MG/2 ML VIAL ONE (14:12)
[2017-04-14] MEDS: ONDANSETRON 4 MG/2 ML VIAL IV PRN (14:16)
[2017-04-14] MEDS ORDERED: LEVOFLOXACIN INJ 100 ML IV ONE (14:20)
[2017-04-14] MEDS ORDERED: HYDROmorphone 2 MG/1 ML VIAL ONE (15:54)
[2017-04-14] MEDS ORDERED: HEPARIN 5,000 UNIT/1 ML VIAL ONE (17:00)
[2017-04-14] MEDS: HEPARIN DRIP 25,000 UNITS/500 ML PREMIX IV SCH (17:30)
[2017-04-14] MEDS: ALTEPLASE 24 MG in SODIUM CHLORIDE 0.9% 480 ML IV SCH (17:30)
[2017-04-14 19:07] LABS: INR 1.1
[2017-04-14 19:08] LABS: INR 1.1; Partial Thromboplastin Time 26.6 SECS (0-40)
[2017-04-14] MEDS: PROMETHAZINE INJ 25 MG in SODIUM CHLORIDE 0.9% 50 ML IV PRN (20:41)
[2017-04-15] MEDS: SODIUM CHLORIDE 0.9% 1,000 ML IV SCH ×4 (00:01→19:04)
[2017-04-15] MEDS: PIPERACILLIN/TAZOBACTAM 3,375 MG in SODIUM CHLORIDE 0.9% 100 ML IV SCH ×3 (02:07→19:05)
[2017-04-15] MEDS: HYDROmorphone 2 MG/1 ML VIAL IV PRN ×6 (02:07→21:22)
[2017-04-15 02:12] LABS: Partial Thromboplastin Time 44.9 SECS (0-40)
[2017-04-15 04:43] LABS: INR 1.3
[2017-04-15] MEDS: PANTOPRAZOLE 40 MG VIAL IV SCH ×2 (09:16→21:18)
[2017-04-15 10:59] LABS: Albumin 2.1 G/DL (3.4-5.0); Bilirubin,Total 1.3 MG/DL (0.2-1.0); Calcium 8.3 MG/DL (8.5-10.1); Osmolality,Calculated 274.8 MOS/KG (273-304); Potassium 4.3 MMOL/L (3.5-5.1); Total Protein 6.7 G/DL (6.4-8.3)
[2017-04-15 13:23] LABS: Partial Thromboplastin Time 37.8 SECS (0-40)
[2017-04-15] MEDS ORDERED: HYDROmorphone 2 MG/1 ML VIAL ONE (16:39)
[2017-04-15] MEDS ORDERED: HEPARIN 5,000 UNIT/1 ML VIAL ONE ×2 (17:14→17:35)
[2017-04-15] MEDS ORDERED: TISSUE ADHESIVE 1 EACH APPLICATOR TOP ONE (18:00)
[2017-04-15] MEDS: PROMETHAZINE INJ 25 MG in SODIUM CHLORIDE 0.9% 50 ML IV PRN (18:55)
[2017-04-15] MEDS: ALTEPLASE 24 MG in SODIUM CHLORIDE 0.9% 480 ML IV SCH (19:04)
[2017-04-16] MEDS: SODIUM CHLORIDE 0.9% 1,000 ML IV SCH ×2 (02:01→08:58)
[2017-04-16] MEDS: PIPERACILLIN/TAZOBACTAM 3,375 MG in SODIUM CHLORIDE 0.9% 100 ML IV SCH ×2 (03:26→08:59)
[2017-04-16] MEDS: HYDROmorphone 2 MG/1 ML VIAL IV PRN ×3 (05:06→21:44)
[2017-04-16] MEDS: ACETAMINOPHEN 325 MG TABLET PO PRN ×2 (05:07→21:37)
[2017-04-16] MEDS: PROMETHAZINE INJ 25 MG in SODIUM CHLORIDE 0.9% 50 ML IV PRN (05:20)
[2017-04-16] MEDS: PANTOPRAZOLE 40 MG VIAL IV SCH (09:02)
[2017-04-16] MEDS ORDERED: FUROSEMIDE 40 MG/4 ML VIAL IV ONE ×2 (11:13→13:08)
[2017-04-16] MEDS: HEPARIN DRIP 25,000 UNITS/500 ML PREMIX IV SCH ×2 (13:31→14:14)
[2017-04-16] MEDS: PANTOPRAZOLE 40 MG TABLET PO SCH (21:37)
[2017-04-17 01:57] LABS: Calcium 7.5 MG/DL (8.5-10.1); Osmolality,Calculated 289.1 MOS/KG (273-304); Potassium 3.6 MMOL/L (3.5-5.1)
[2017-04-17 02:02] LABS: Basophils % 0.1 % (0.0-0.8); Eosinophils # 0.1 10*3/uL (0.0-0.87); Eosinophils % 1.4 % (0.00-10.9); Hematocrit 19.6 VOL% (42.0-52.0); Immature Granulocytes % 1.3 %; Immature Granulocytes Absolute 0.12 #; Lymphocytes # 1.3 10*3/uL (1.4-4.0); Lymphocytes % 13.2 % (21.2-54.2); Mean Corpuscular HGB Conc 31.1 GM/DL (32-36); Mean Corpuscular Hemoglobin 29 PG (27-34); Mean Platelet Volume 11.4 FL (9.6-12.0); Monocytes # 1.3 10*3/uL (0.11-0.8); Monocytes % 13.4 % (1.7-12.7); Neutrophils # 6.7 10*3/uL (1.4-7.4); Neutrophils % 70.6 % (38.7-73.9); Platelet Count 188 T/CUMM (130-400); Red Blood Count 2.13 MC/CUMM (3.8-5.5); Red Cell Distribution Width 13.2 % (9.3-17.3); White Blood Count 9.5 T/CUMM (4-12)
[2017-04-17 02:04] LABS: Hemoglobin 6.1 GM/DL (14.0-18.0)
[2017-04-17] MEDS ORDERED: SODIUM CHLORIDE 0.9% 1,000 ML IV PRN ×3 (02:26→17:37)
[2017-04-17] MEDS ORDERED: HEPARIN 5,000 UNIT/1 ML VIAL IV ONE (08:41)
[2017-04-17] MEDS: PANTOPRAZOLE 40 MG TABLET PO SCH ×2 (08:42→21:45)
[2017-04-17] MEDS: HEPARIN DRIP 25,000 UNITS/500 ML PREMIX IV SCH (08:55)
[2017-04-17] MEDS: HYDROmorphone 2 MG/1 ML VIAL IV PRN ×4 (10:18→21:41)
[2017-04-17 12:57] LABS: Hematocrit 26.1 VOL% (42.0-52.0); Hemoglobin 8.2 GM/DL (14.0-18.0)
[2017-04-17 16:01] LABS: Hematocrit 25.7 VOL% (42.0-52.0); Hemoglobin 8.5 GM/DL (14.0-18.0)
[2017-04-17 19:00] LABS: Hematocrit 24.6 VOL% (42.0-52.0); Hemoglobin 8.1 GM/DL (14.0-18.0)
[2017-04-17] MEDS: SODIUM CHLORIDE 0.9% 1,000 ML IV SCH (19:00)
[2017-04-17 19:02] LABS: INR 1.1; PT Patient Result 11.4 SECS; Partial Thromboplastin Time 22.6 SECS (0-40)
[2017-04-17 23:05] LABS: Hematocrit 26.4 VOL% (42.0-52.0); Hemoglobin 8.6 GM/DL (14.0-18.0)
[2017-04-18] MEDS: HYDROmorphone 2 MG/1 ML VIAL IV PRN ×7 (01:15→21:19)
[2017-04-18 04:58] LABS: Basophils % 0.4 % (0.0-0.8); Eosinophils # 0.2 10*3/uL (0.0-0.87); Eosinophils % 2.7 % (0.00-10.9); Hematocrit 25.7 VOL% (42.0-52.0); Hemoglobin 8.2 GM/DL (14.0-18.0); Immature Granulocytes % 2.1 %; Immature Granulocytes Absolute 0.16 #; Lymphocytes # 0.8 10*3/uL (1.4-4.0); Lymphocytes % 10.5 % (21.2-54.2); Mean Corpuscular HGB Conc 31.9 GM/DL (32-36); Mean Corpuscular Hemoglobin 29 PG (27-34); Mean Corpuscular Volume 89.5 FL (87-102); Mean Platelet Volume 10.9 FL (9.6-12.0); Monocytes % 13.8 % (1.7-12.7); NRBC # 0.11 10*3/uL; Neutrophils # 5.3 10*3/uL (1.4-7.4); Neutrophils % 70.5 % (38.7-73.9); Platelet Count 184 T/CUMM (130-400); Red Blood Count 2.87 MC/CUMM (3.8-5.5); White Blood Count 7.5 T/CUMM (4-12)
[2017-04-18] MEDS: SODIUM CHLORIDE 0.9% 1,000 ML IV SCH ×2 (05:04→15:08)
[2017-04-18 05:30] LABS: Albumin 1.8 G/DL (3.4-5.0); Bilirubin,Total 0.9 MG/DL (0.2-1.0); Calcium 7.1 MG/DL (8.5-10.1); Osmolality,Calculated 284.1 MOS/KG (273-304); Potassium 3.8 MMOL/L (3.5-5.1); Total Protein 5.5 G/DL (6.4-8.3)
[2017-04-18 08:38] LABS: Hematocrit 25.6 VOL% (42.0-52.0); Hemoglobin 8.3 GM/DL (14.0-18.0)
[2017-04-18] MEDS: PANTOPRAZOLE 40 MG TABLET PO SCH ×2 (08:46→21:18)
[2017-04-18 11:24] LABS: Protein C Activity Plasma 71 % (70 - 150)
[2017-04-18 14:06] LABS: Protein S Activity Plasma 64 % (65 - 160)
[2017-04-18 14:36] LABS: Phospholipid Ab IgM, S < 9.4 MPL
[2017-04-18 15:30] LABS: Hematocrit 27.8 VOL% (42.0-52.0); Hemoglobin 9.1 GM/DL (14.0-18.0)
[2017-04-19] MEDS: HYDROmorphone 2 MG/1 ML VIAL IV PRN ×6 (00:32→23:21)
[2017-04-19] MEDS: SODIUM CHLORIDE 0.9% 1,000 ML IV SCH (00:32)
[2017-04-19 04:01] LABS: Basophils % 0.5 % (0.0-0.8); Eosinophils # 0.3 10*3/uL (0.0-0.87); Eosinophils % 4.4 % (0.00-10.9); Hemoglobin 7.9 GM/DL (14.0-18.0); Immature Granulocytes % 1.4 %; Immature Granulocytes Absolute 0.09 #; Lymphocytes # 0.7 10*3/uL (1.4-4.0); Lymphocytes % 11.2 % (21.2-54.2); Mean Corpuscular HGB Conc 31.6 GM/DL (32-36); Mean Corpuscular Hemoglobin 29 PG (27-34); Mean Corpuscular Volume 90.9 FL (87-102); Mean Platelet Volume 10.6 FL (9.6-12.0); Monocytes % 14.5 % (1.7-12.7); NRBC # 0.04 10*3/uL; Neutrophils # 4.5 10*3/uL (1.4-7.4); Platelet Count 180 T/CUMM (130-400); Red Blood Count 2.75 MC/CUMM (3.8-5.5); Red Cell Distribution Width 14.8 % (9.3-17.3); White Blood Count 6.6 T/CUMM (4-12)
[2017-04-19 04:50] LABS: Albumin 1.9 G/DL (3.4-5.0); Bilirubin,Total 0.8 MG/DL (0.2-1.0); Calcium 7.2 MG/DL (8.5-10.1); Osmolality,Calculated 280.4 MOS/KG (273-304); Potassium 3.6 MMOL/L (3.5-5.1); Total Protein 5.6 G/DL (6.4-8.3)
[2017-04-19] MEDS: PANTOPRAZOLE 40 MG TABLET PO SCH ×2 (08:55→20:20)
[2017-04-19 12:12] LABS: Hematocrit 27.4 VOL% (42.0-52.0); Hemoglobin 8.9 GM/DL (14.0-18.0)
[2017-04-19 13:51] LABS: Homocysteine 12 mcmol/L
[2017-04-20 06:43] LABS: Basophils % 0.5 % (0.0-0.8); Eosinophils # 0.2 10*3/uL (0.0-0.87); Hematocrit 27.2 VOL% (42.0-52.0); Hemoglobin 8.6 GM/DL (14.0-18.0); Immature Granulocytes % 1.7 %; Immature Granulocytes Absolute 0.11 #; Lymphocytes # 0.7 10*3/uL (1.4-4.0); Mean Corpuscular HGB Conc 31.6 GM/DL (32-36); Mean Corpuscular Hemoglobin 28 PG (27-34); Mean Corpuscular Volume 89.2 FL (87-102); Monocytes # 0.9 10*3/uL (0.11-0.8); Monocytes % 14.5 % (1.7-12.7); Neutrophils # 4.4 10*3/uL (1.4-7.4); Neutrophils % 69.3 % (38.7-73.9); Platelet Count 196 T/CUMM (130-400); Red Blood Count 3.05 MC/CUMM (3.8-5.5); White Blood Count 6.4 T/CUMM (4-12)
[2017-04-20 07:24] LABS: Albumin 2.3 G/DL (3.4-5.0); Bilirubin,Total 1.1 MG/DL (0.2-1.0); Calcium 8.3 MG/DL (8.5-10.1); Osmolality,Calculated 278.4 MOS/KG (273-304); Potassium 3.8 MMOL/L (3.5-5.1); Total Protein 6.4 G/DL (6.4-8.3)
[2017-04-20] MEDS: POLYETHYLENE GLYCOL POWDER 17 GM PACK PO SCH (09:46)
[2017-04-20] MEDS: PANTOPRAZOLE 40 MG TABLET PO SCH ×2 (09:46→22:07)
[2017-04-20] MEDS: HYDROmorphone 2 MG/1 ML VIAL IV PRN ×2 (09:53→15:31)
[2017-04-20] MEDS: SODIUM CHLORIDE 0.9% 1,000 ML IV SCH (11:47)
[2017-04-20] MEDS ORDERED: oxyCODONE/ACETAMINOPHEN 5-325 MG TABLET PO PRN (14:23)
[2017-04-20] MEDS: oxyCODONE/ACETAMINOPHEN 5-325 MG TABLET PO PRN ×2 (17:07→22:07)
[2017-04-21 06:32] LABS: Basophils % 0.5 % (0.0-0.8); Eosinophils # 0.2 10*3/uL (0.0-0.87); Eosinophils % 3.9 % (0.00-10.9); Hematocrit 28.1 VOL% (42.0-52.0); Immature Granulocytes Absolute 0.12 #; Lymphocytes # 0.6 10*3/uL (1.4-4.0); Lymphocytes % 10.5 % (21.2-54.2); Mean Corpuscular Hemoglobin 29 PG (27-34); Mean Corpuscular Volume 89.2 FL (87-102); Mean Platelet Volume 10.9 FL (9.6-12.0); Monocytes # 0.9 10*3/uL (0.11-0.8); Monocytes % 13.9 % (1.7-12.7); Neutrophils # 4.2 10*3/uL (1.4-7.4); Neutrophils % 69.2 % (38.7-73.9); Platelet Count 195 T/CUMM (130-400); Red Blood Count 3.15 MC/CUMM (3.8-5.5); Red Cell Distribution Width 14.5 % (9.3-17.3); White Blood Count 6.1 T/CUMM (4-12)
[2017-04-21 07:01] LABS: Albumin 2.3 G/DL (3.4-5.0); Bilirubin,Total 1.3 MG/DL (0.2-1.0); Calcium 8.2 MG/DL (8.5-10.1); Osmolality,Calculated 279.4 MOS/KG (273-304); Total Protein 6.6 G/DL (6.4-8.3)
[2017-04-21] MEDS: PANTOPRAZOLE 40 MG TABLET PO SCH ×2 (08:30→20:19)
[2017-04-21] MEDS: POLYETHYLENE GLYCOL POWDER 17 GM PACK PO SCH (08:31)
[2017-04-21 13:29] LABS: PT Mix 1:1 (Mayo Reflex) 12.5 sec; Thrombin Time (Bovine), P 16 sec (15 - 23)
[2017-04-21 16:26] LABS: Factor V Leiden (R506Q) Mutati Negative (Negative)
[2017-04-21] MEDS: HEPARIN DRIP 25,000 UNITS/500 ML PREMIX IV SCH (18:58)
[2017-04-21] MEDS: oxyCODONE/ACETAMINOPHEN 5-325 MG TABLET PO PRN (20:25)
[2017-04-22 02:45] LABS: Basophils % 0.5 % (0.0-0.8); Eosinophils # 0.2 10*3/uL (0.0-0.87); Eosinophils % 4.1 % (0.00-10.9); Hematocrit 28.7 VOL% (42.0-52.0); Hemoglobin 9.2 GM/DL (14.0-18.0); Immature Granulocytes % 1.2 %; Immature Granulocytes Absolute 0.07 #; Lymphocytes # 0.8 10*3/uL (1.4-4.0); Lymphocytes % 13.2 % (21.2-54.2); Mean Corpuscular HGB Conc 32.1 GM/DL (32-36); Mean Corpuscular Hemoglobin 28 PG (27-34); Mean Corpuscular Volume 88.3 FL (87-102); Mean Platelet Volume 10.8 FL (9.6-12.0); Monocytes # 0.9 10*3/uL (0.11-0.8); Monocytes % 15.9 % (1.7-12.7); Neutrophils # 3.8 10*3/uL (1.4-7.4); Neutrophils % 65.1 % (38.7-73.9); Platelet Count 196 T/CUMM (130-400); Red Blood Count 3.25 MC/CUMM (3.8-5.5); Red Cell Distribution Width 14.6 % (9.3-17.3); White Blood Count 5.9 T/CUMM (4-12)
[2017-04-22 03:13] LABS: Albumin 2.4 G/DL (3.4-5.0); Bilirubin,Total 1.1 MG/DL (0.2-1.0); Calcium 8.1 MG/DL (8.5-10.1); Total Protein 6.8 G/DL (6.4-8.3)
[2017-04-22 03:14] LABS: Osmolality,Calculated 277.5 MOS/KG (273-304); Potassium 3.9 MMOL/L (3.5-5.1)
[2017-04-22 03:16] LABS: Band Neutrophils 7 % (0-10); Eosinophils 6 % (0-10); Lymphocytes 9 % (20-55); Segmented Neutrophils 68 % (50-85); Total Cells Counted 100
[2017-04-22 03:17] LABS: Anisocytosis 1+; Poikilocytosis 1+; Polychromasia Slight
[2017-04-22] MEDS: HEPARIN DRIP 25,000 UNITS/500 ML PREMIX IV SCH (09:17)
[2017-04-22] MEDS: PANTOPRAZOLE 40 MG TABLET PO SCH (09:17)
[2017-04-22] MEDS: POLYETHYLENE GLYCOL POWDER 17 GM PACK PO SCH ×2 (09:17→10:30)
[2017-04-22] MEDS: oxyCODONE/ACETAMINOPHEN 5-325 MG TABLET PO PRN (09:19)
[2017-04-22 11:23] VITALS: BP 103/62
[2017-04-22 18:45] LABS: DRVVT Screen Ratio 1.1 ratio (0.0 - 1.1); INR 1.3
[2017-04-22] MEDS ORDERED: APIXABAN 2.5 MG TABLET PO SCH (21:00)
== END 2017-04-22 15:00 | disposition home or self-care (01) | DRG 981 ==
LOC: EDBD → N.ED 18:11 → N.EDINP 21:25 → SUPCPDRO 21:25 → SUATTDRO 21:25 → N.3E 21:54 → N.CC 04-14 17:44 → N.5E 04-19 14:51
PROVIDERS: ADMIT Internal Medicine; ATTEND Hospitalist
PROC: IRURORE (2017-04-15 16:05)